=== PATIENT | male | born 1995 | race Caucasian/White ===

== ENCOUNTER 2016-08-12 03:14 | Emergency (ER) | payer BC, OTHER ==
[2016-08-12] MEDS ORDERED: ONDANSETRON HCL/PF 2 MG/ML VIAL IV ONE ×2 (03:32→04:21)
[2016-08-12] MEDS ORDERED: NORMAL SALINE 1,000 ML IV ONE (03:33)
[2016-08-12] MEDS ORDERED: ONDANSETRON HCL/PF 2 MG/ML VIAL ONE ×2 (03:34→04:21)
--- NOTE | 2016-08-12 03:37 | ERNOTE ---
Abdominal HPI - General Chief Complaint: Abdominal Pain Time Seen by Provider: 08/12/16 03:25 Source: patient, family Exam Limitations: no limitations - Immun/Allergies/Home Medications Immunizatons: IMMUNIZATION HX Immunizations Up to Date Yes History of Influenza Vaccine No Allergies/Adverse Reactions: Allergies No Known Allergies Allergy (Unverified 08/12/16 03:20) Home Medications: HOME MEDICATIONS Ondansetron HCl [Zofran] 4 mg PO TID PRN #20 tablet 08/12/16 [Last Taken Unknown ] - History of Present Illness Timing: getting worse, intermittent Quality: moderate, dullness - at this time, sharpness - at first Activities at Onset: none - yesterday, sleep - today Associated Symptoms: Present: nausea, vomiting Prior Abdominal Problems: Present: none Review of Systems - Review of Systems Constitutional: Present: chills. Absent: recent illness, fever EYE: Present: no symptoms reported ENT: Present: no symptoms reported Respiratory: Absent: shortness of breath Cardiology: Present: no symptoms reported Gastrointestinal/Abdominal: Present: See HPI, diarrhea - tonight. Absent: constipation Genitourinary: Absent: frequency, pain, dysuria Musculoskeletal: Present: no symptoms reported Skin: Present: no symptoms reported Neurological: Present: no symptoms reported Endocrine: Present: no symptoms reported Hematologic/Lymphatic: Present: no symptoms reported Psych: Present: no symptoms reported - Patient's Past Medical History Patient History - Medical: No pertinent hx Patient History - Cardiac/Respiratory: No pertinent hx Patient History - Cancer: No Hx of Cancer Patient History - Surgical Procedures: T & A Patient History - Other: None - Social History Psych History: No pertinent hx Smoking Status: Never smoker Have you smoked in the past 12 months: No Do you dip or chew tobacco: No Alcohol Use: none Drug Use: none - Immunizations Immunizations Up to Date: Yes History of Influenza Vaccine: No Physical Exam - Physical Exam General Appearance: Present: wd/wn, alert, mild distress Eye Exam: Normal inspection: bilateral, PERRL: bilateral Ears, Nose, Throat: Present: normal ENT inspection Neck: Present: normal inspection, nontender, supple, full range of motion Respiratory: Present: no respiratory distress Gastrointestinal/Abdominal: Present: normal bowel sounds, nontender, nondistended, soft. Absent: guarding, rebound, mass Back Exam: Present: normal inspection, no CVA tenderness Extremity Exam: Present: normal inspection, normal range of motion, no edema Neurological Exam: Present: alert, oriented, normal mood/affect, no motor/ sensory deficits Skin Exam: Present: normal color, warm/dry ED Progress - Results and Orders Patient's Lab Results:: I have reviewed the patient's lab results. Results and Orders: Laboratory Tests 08/12/16 08/12/16 08/12/16 03:40 03:40 05:07 WBC 11.2 H Hgb 16.5 Hct 47.6 Plt Count 227 Neutrophils % 76.0 H Sodium 143 H Potassium 4.0 Chloride 105 Carbon Dioxide 29.8 Anion Gap 12.2 BUN 17 Creatinine 0.92 Est GFR (Non-Af Amer) 110 BUN/Creatinine Ratio 18.5 Random Glucose 99 Calcium 8.7 Total Bilirubin 0.5 AST 18 ALT 18 L Alkaline Phosphatase 83 Total Protein 7.7 Albumin 4.4 Amylase 60 Lipase 95 Urine Color Pale yellow Urine Appearance Clear Urine pH 6.5 Ur Specific [place] 1.015 Urine Protein Negative Urine Glucose (UA) Negative Urine Ketones Negative Urine Blood Negative Urine Nitrate Negative Urine Bilirubin Negative Urine Urobilinogen Normal Ur Leukocyte Esterase Negative Urine RBC None seen Urine WBC None seen Ur Epithelial Cells 0-5 Amorphous Sediment Trace Urine Bacteria None seen Urine Culture Comments No culture indicated - Vital Signs Patient's Vital Signs:: I have reviewed the patient's vital signs. Vital Signs: Vital Signs 08/12/16 03:17 Temperature 36.8 C Pulse Rate 85 Respiratory 14 Rate Blood Pressure 132/87 O2 Sat by Pulse 100 Oximetry - X-Ray X-Ray #1 X-Ray: abdomen Interpretation: Interp. by me X-ray Comments: multiple A/F levels on upright, no free air, no obstruction. - CT/Ultrasound CT/Ultrasound Narrative: partially contracted gallbladder. unremarkable retrocecal appendix. Oral contrast in distal esophagus cannot rule out reflux. Upper normal diameter of jejunal loops- nonspecific. Otherwise within normal limits - Progress/Reassessment Chief Complaint: Abdominal Pain Progress:: Unchanged Progress Note-Subjective: 08/12/16 04:21 discussed lab and x-ray abnormalities and suggested CT, mom and patient agree, would like more zofran for nausea. Zofran and CT ordered Departure - Departure Clinical Impression: Gastroenteritis Disposition: Home self-care Condition: Good Instructions: Viral Gastroenteritis, Adult, [id number] Additional Instructions: take medication every 8 hours for 24 hours then as needed. Clear liquids that contain sugar for 24 hours then slowly resume regular diet Referrals: Andrei Burt MD [Primary Care Provider] - Prescriptions: Ondansetron HCl [Zofran] 4 mg PO TID PRN #20 tablet PRN Reason: Nausea
[2016-08-12 03:47] LABS: Hematocrit 47.6 % (42.0-52.0); Hemoglobin 16.5 gm/dL (13.5-18.0); Mean Cell Volume 84.2 fl (78-100); Mean Corpuscular Hemoglobin 29.2 pg (27-31); Mean Corpuscular Hgb Conc 34.7 g/dl (32-36); Mean Platelet Volume 9.7 fl (6.0-9.5); Neutrophil # 8.5 K/mm3 (1.3-6.0); Platelet Count 227 K/mm3 (150-450); Red Blood Count 5.65 M/mm3 (4.7-6.0); Red Cell Distribution Width 12.6 % (11.5-14.0); White Blood Count 11.2 K/mm3 (4.0-10.5)
[2016-08-12 03:58] LABS: Albumin * 4.4 gm/dl (3.4-5.0); Anion Gap 12.2 mmol/L (6.8-13.8); BUN/Creatinine Ratio 18.5 (9.0-21.6); Bilirubin, Total 0.5 mg/dL (0.0-1.1); Ca. Corrected For Albumin 8.1 mg/dL (8.4-10.2); Calcium * 8.7 mg/dL (7.9-10.9); Carbon Dioxide 29.8 mmol/L (24-32.6); Total Protein 7.7 gm/dL (6.2-8.2)
[2016-08-12] MEDS ORDERED: DIATRIZOATE MEGLU/DIATRIZO SOD 30 ML BTL ONE (04:21)
[2016-08-12] MEDS ORDERED: DIATRIZOATE MEGLU/DIATRIZO SOD 30 ML BTL PO ONE (04:21)
[2016-08-12 05:17] LABS: Urine Bilirubin Negative (NEGATIVE); Urine Blood Negative /ul (NEGATIVE); Urine Ketone Negative (NEGATIVE); Urine Nitrite Negative (NEGATIVE); Urine Protein Negative (NEGATIVE); Urine Specific Gravity 1.015 SP.GR. (1.005-1.030); Urine Urobilinogen Normal (NORMAL); Urine pH 6.5 pH (5.0-7.0)
[2016-08-12 05:25] LABS: Urine Amorphous Sediment TRACE (NONE-FEW); Urine Appearance Clear; Urine Bacteria None Seen; Urine Color Pale Yellow; Urine RBC None Seen /hpf (0-5); Urine WBC None Seen /hpf (0-5)
[2016-08-12 07:34] VITALS: BP 115/80
== END 2016-08-12 07:35 | disposition home or self-care (01) ==
LOC: ER 03:14
DX: K52.9 Noninfective gastroenteritis and colitis, unspecified (principal)